=== PATIENT | female | born 1995 | race Caucasian/White ===

== ENCOUNTER 2016-04-07 12:05 | Emergency (ER) | payer OTHER ==
[~2016-04-07] VITALS: Ht 168.9 cm; Wt 64.0 kg
[2016-04-07 12:08] VITALS: TEMP 37; Ht 168.9 cm; Wt 64.0 kg
[2016-04-07] MEDS ORDERED: IBUPROFEN 600 MG TAB PO STA (12:19)
[2016-04-07] MEDS ORDERED: [UNRECOGNIZED DRUG - OTHER] PO (12:43)
[2016-04-07] MEDS ORDERED: BCPILLS PO (12:43)
[2016-04-07] MEDS ORDERED: FEXO1TAB58 PO (12:43)
[2016-04-07] MEDS ORDERED: IBUP-1050 PO (12:44)
--- NOTE | 2016-04-07 12:46 | DIAGNOSTIC IMAGING REPORT ---
LEFT ANKLE MIN 3 VIEWS ROUTINE CLINICAL HISTORY: L ankle pain pain COMPARISON: None. DISCUSSION: The bones and joint spaces appear intact. There is no evidence of fracture, dislocation or bony disease. Mild lateral malleolar soft tissue edema IMPRESSION: Lateral soft tissue edema. No acute bony abnormality. Electronically signed by: Raghavendra Bruno M.D. 04/07/2016 12:45 PM Dictated Date/Time: 04/07/2016 12:44 PM
[2016-04-07] MEDS ORDERED: ENT3 PO (12:49)
[2016-04-07 13:33] VITALS: BP 127/79; PULSE 94; O2SAT 98
--- NOTE | 2016-04-07 15:59 | EMERGENCY ROOM VISIT NOTE ---
History First contact with patient: 12:11 Chief Complaint: ANKLE PAIN Stated Complaint: ANKLE INJURY History of Present Illness The patient is a 20 year old female who presents to the Emergency Room with complaints of left ankle pain. She reports slipping on ice and twisting her ankle. She reports persistent swelling and pain, rating her discomfort a 5 out of 10 with weightbearing. She currently denies any pain extending into the leg or foot. Denies paresthesias or numbness. She denies any prior history of left ankle injuries. Review of Systems 10 system review was performed and was negative except for pertinent positives and negatives as indicated in history of present illness Past Medical/Surgical History Medical Problems: (1) No significant past medical history Surgical Problems: (1) No history of previous surgery Family History No significant family history Unremarkable Social History Smoking Status: Never Smoker Alcohol Use: occasionally Marital Status: single Occupation Status: [employer] Current/Historical Medications Scheduled Control Pills ( Control Pills), 1 TAB PO DAILY Budesonide (Budesonide), 3 MG PO QPM Fexofenadine-Pseudoephedrine (Chelo-D 24 Hour Allergy), 1 TAB PO DAILY Ibuprofen (Advil), 200-600 MG PO Q4H Allergies Coded Allergies: No Known Allergies (Unverified , 04/07/16) Physical Exam Vital Signs Date Time Temp Pulse Resp B/P Pulse Ox O2 Delivery O2 Flow Rate FiO2 04/07/16 13:33 94 18 127/79 98 04/07/16 12:08 37.0 87 18 112/77 98 Room Air Pain Rating (0-10): 7.0 Physical Exam CONSTITUTIONAL: Healthy and well nourished. Alert and oriented X 3 with positive affect. Patient does not appear in any significant distress. HEENT: Normocephalic, atraumatic. Pupils equal, round and reactive. NECK: Full active range of motion without discomfort. MUSCULOSKELETAL: Examination of the left ankle shows mild lateral edema without ecchymosis or open wounds. The patient has tenderness over the lateral malleolus. No focal tenderness over the medial malleolus or deltoid ligament. Negative anterior draw. No tenderness to palpation of the dorsal midfoot, metatarsals, phalanges, calcaneus or Achilles tendon. Pedal pulses are intact. INTEGUMENTARY: No rash or other significant dermatologic conditions noted. NEUROLOGIC: Left foot and toes are sensory intact. Medical Decision & Procedures ER Provider Diagnostic Interpretation: My interpretation of left ankle x-rays does not show any acute fractures, dislocation or ankle mortise asymmetry. Radiologist report is as follows: LEFT ANKLE MIN 3 VIEWS ROUTINE CLINICAL HISTORY: L ankle pain pain COMPARISON: None. DISCUSSION: The bones and joint spaces appear intact. There is no evidence of fracture, dislocation or bony disease. Mild lateral malleolar soft tissue edema IMPRESSION: Lateral soft tissue edema. No acute bony abnormality. Medications Administered Medications (Trade) Dose Ordered Sig/Basim Route Start Time Stop Time Status Last Admin Dose Admin Ibuprofen (Motrin Tab) 600 mg NOW STAT PO 04/07/16 12:19 04/07/16 12:21 DC 04/07/16 12:27 600 MG ED Course Patient history and physical exam were performed. Nurse's notes were reviewed. The patient refused any analgesics. X-rays of the left ankle were normal. The patient was fitted with crutches. She was encouraged to ice and elevate the ankle for swelling and pain. Ibuprofen and Tylenol as needed for additional pain relief. She was instructed to follow-up with orthopedics if symptoms have not improved within the next week. The patient was happy with plan of care, voiced understanding of all discharge instructions, and rated her pain a 3 out of 10 at the time of discharge. Impression Primary Impression: Left ankle sprain Departure Information Dispostion Home / Self-Care Condition GOOD Forms HOME CARE DOCUMENTATION FORM, IMPORTANT VISIT INFORMATION Patient Instructions My [facility] Additional Instructions Intermittently apply ice and elevate ankle for swelling and pain. Perform range of motion exercises to prevent stiffness. Limited weight on foot for the next 3 days - use crutches. After 3 days, apply an ankle brace, and still using your crutches, slowly apply weight as tolerated - No LIMPING. Ibuprofen 600 mg and/or Tylenol 1000 mg every 8 hours. You may also alternate these medications for more effective pain relief: Ibuprofen --4 HRS--> Tylenol --4 HRS--> ibuprofen --4 HRS--> Tylenol .... Follow-up with orthopedics if symptoms are not improving within the next week. Problem Qualifiers Primary Impression: Left ankle sprain Encounter type: initial encounter Involved ligament of ankle: unspecified ligament Qualified Codes: S93.402A - Sprain of unspecified ligament of left ankle, initial encounter
== END 2016-04-07 13:37 | disposition home or self-care (01) ==
LOC: C.EDB 12:07 → C.EDD 13:37
DX: S93.402A Sprain of unspecified ligament of left ankle, initial encounter (principal); W00.0XXA Fall on same level due to ice and snow, initial encounter; Z79.3 Long term (current) use of hormonal contraceptives; Z79.899 Other long term (current) drug therapy